=== PATIENT | female | born 1955 | race Caucasian/White ===

== ENCOUNTER 2016-12-04 08:07 | Emergency (ER) | payer BC ==
[2016-12-04] MEDS ORDERED: Pepcid 20 MG PO ONE (08:14)
[2016-12-04] MEDS ORDERED: BENADRYL 50 MG/ML IV ONE (08:14)
[2016-12-04] MEDS ORDERED: EPINEPHRINE 1MG/ML AMP IM ONE ×2 (08:14→08:58)
[2016-12-04] MEDS ORDERED: CLARITIN 10 MG PO ONE (08:14)
[2016-12-04] MEDS ORDERED: Sodium Chloride 0.9% 1000 ML 1,000 ML IV SCH (08:15)
--- NOTE | 2016-12-04 08:24 | ERPHSYRPT ---
- History of Present Illness Time Seen by Provider: 12/04/16 08:13 Source: patient Exam Limitations: no limitations Patient Subjective Stated Complaint: allergic reaction since last night Triage Nursing Assessment: allergic reaction since last night. augmentin since last thursday for upper resp s/s. since last night--hives and swelling to face. rt face more swollen than lt. no cough. states rt lower throat 'feels funny' o2 sat wnl. hives noted to lower extram. c/o itching Physician History: tristan presents form urgent care with hives and swollen lip; patient has been on Augmentin for a URI for 6 days; hx of similar reaction after taking ceflexin a year ago; was placed on steroids and got worse; tested and allergy to ceflexin and steroids; no SOB or wheezing now; hives and swollen lip started last pm; took benadryl and claritin last night; no better; in past IV Benadryl, with po roge and H2 senia; seen at urgent care this am and referred here. No fever or sore throat; no difficulty swallowing; no change in voice Timing/Duration: today (continues), yesterday (onset), gradual onset Severity: moderate Modifying Factors: Improves With: medication Associated Symptoms: rash, other (swelling lower lip) Allergies/Adverse Reactions: morphine Allergy (Unknown, Verified 12/04/16 08:16) Headache headache, felt terrrible cephalexin Allergy (Verified 12/04/16 08:16) prednisone Allergy (Verified 12/04/16 08:16) triamcinolone [From Kenalog] Allergy (Verified 12/04/16 08:16) Home Medications: Alprazolam 1 mg [Xanax 1 mg] 1 mg PO Q8H PRN PRN 05/23/13 [History] Calcium Carbonate [Calcium] 500 mg PO TID 05/23/13 [History] Cyanocobalamin/Cobamamide [B12 5,000 Mcg Microlozenge] 500 mg SL DAILY 05/23/13 [History] Duloxetine HCl [Cymbalta] 60 mg PO DAILY 05/23/13 [History] Loratadine 10 mg [Claritin 10 mg] 10 mg PO DAILY 05/23/13 [History] Zolpidem Tartrate [Ambien Cr] 12.5 mg PO HS 05/23/13 [History] Hx Tetanus, Diphtheria Vaccination/Date Given: Yes Hx Influenza Vaccination/Date Given: Yes Hx Pneumococcal Vaccination/Date Given: No Immunizations Up to Date: Yes - Review of Systems Constitutional: Other (hives ) Eyes: No Symptoms Ears, Nose, & Throat: Mouth Swelling (tongue ok but right lower lip swollen; voice normal; ), No Ear Pain, No Hearing Changes, No Nose Congestion, No Sinus Drainage, No Epistaxis, No Throat Pain, No Throat Swelling, No Hoarse Respiratory: No Cough, No Dyspnea, No Wheezing Cardiac: No Chest Pain, No Palpitations, No Syncope, No Orthopnea Abdominal/Gastrointestinal: No Abdominal Pain, No Nausea, No Vomiting, No Diarrhea Genitourinary Symptoms: No Dysuria, No Frequency, No Hematuria, No Flank Pain Musculoskeletal: No Symptoms Skin: Pruritis, Rash (diffues pruritic hives), No Cellulitis Neurological: No Symptoms Psychological: Anxiety, No Alcohol Abuse, No Drug Abuse, No Suicidal Ideations, No Homicidal Ideations Endocrine: No Symptoms Hematologic/Lymphatic: No Symptoms Immunological/Allergic: No Symptoms - Past Medical History Pertinent Past Medical History: Yes Neurological History: No Pertinent History ENT History: No Pertinent History Cardiac History: Hypertension Respiratory History: Sleep Apnea Endocrine Medical History: Diabetes Type II, Hypothyroidism Musculoskeletal History: Osteoarthritis GI Medical History: No Pertinent History History: No Pertinent History Psycho-Social History: Anxiety, Depression Female Reproductive Disorders: No Pertinent History Other Medical History: pinched nerve in back - Past Surgical History Past Surgical History: Yes Neuro Surgical History: No Pertinent History Cardiac: No Pertinent History Respiratory: No Pertinent History Gastrointestinal: Other Genitourinary: No Pertinent History Musculoskeletal: Other Female Surgical History: No Pertinent History Other Surgical History: gastric bypass,rt foot surgery,sinus surgery,t&a - Social History Smoking Status: Never smoker Exposure to second hand smoke: No Alcohol Use: None Drug Use: none Patient Lives Alone: Yes Significant Family History: no pertinent family hx - Female History Hx Now: No - Nursing Vital Signs Nursing Vital Signs: Initial Vital Signs Temperature Source Oral Pulse Rate 86 Respiratory Rate 18 Blood Pressure [Right Arm] 136/67 Pain Intensity 0 - Physical Exam General Appearance: mild distress (pruritis ), alert, anxiety, obese Eye Exam: PERRL/EOMI, eyes nml inspection, No photophobia Ears, Nose, Throat Exam: normal ENT inspection, TMs normal, pharynx normal, moist mucous membranes, other (normal voice; swelling lower right lip; tongue normal), No pharyngeal erythema Neck Exam: normal inspection, non-tender, supple, full range of motion, other ( no submental swelling), No meningismus, No JVD, No lymphadenopathy, No subcutaneous emphysema Respiratory Exam: normal breath sounds, lungs clear, airway intact, No chest tenderness, No respiratory distress, No diminished breath sounds Cardiovascular Exam: regular rate/rhythm, normal heart sounds, normal peripheral pulses, capillary refill <2 sec, No murmur Gastrointestinal/Abdomen Exam: soft, normal bowel sounds, No tenderness, No distention, No guarding, No rebound, No organomegaly Pelvic Exam: deferred Rectal Exam: deferred Back Exam: normal inspection, normal range of motion, No CVA tenderness, No rash Extremity Exam: normal inspection, normal range of motion, No toney's sign, No pedal edema Neurologic Exam: alert, oriented x 3, cooperative, cashier or checker stock clerk II-XII nml as tested, nml cerebellar function, nml station & gait, sensation nml, No normal mood/ affect (anxious) Skin Exam: normal color, warm, dry, rash (diffuse hives), No petechiae, No cyanosis Lymphatic Exam: No adenopathy SpO2 Interpretation: normal SpO2: 96 Oxygen Delivery: Room Air - Course Nursing assessment & vital signs reviewed: Yes Ordered Tests: Active Orders 24 hr Category Date Time Status CO2 Monitoring STAT Care 12/04/16 08:32 Inactive Eastern Philosophy Professor STAT Care 12/04/16 08:53 Active IV Insertion STAT Care 12/04/16 08:14 Active Pulse Oximetry (ED) STAT Care 12/04/16 08:14 Active Re-Check Vital Signs STAT Care 12/04/16 08:14 Completed Medication Summary Generic Name Dose Route Start Last Admin Trade Name Freq PRN Reason Stop Dose Admin Sodium Chloride 1,000 mls @ 100 mls/hr 12/04/16 08:15 12/04/16 08:34 Sodium Chloride 0.9% 1000 Ml IV 01/03/17 08:14 100 mls/hr .Q10H BRAYDEN Administration Discontinued Medications Generic Name Dose Route Start Last Admin Trade Name Freq PRN Reason Stop Dose Admin Diphenhydramine HCl 50 mg 12/04/16 08:14 12/04/16 08:33 Benadryl 50 Mg/Ml IV 12/04/16 08:15 50 mg STAT ONE Administration Diphenhydramine HCl Confirm 12/04/16 08:27 Benadryl 50 Mg/Ml Administered 12/04/16 08:28 Dose 50 mg .ROUTE .STK-MED ONE Epinephrine HCl 0.3 mg 12/04/16 08:14 12/04/16 08:33 Epinephrine 1:1000 1 Ml Amp IM 12/04/16 08:15 0.3 mg STAT ONE Administration Epinephrine HCl Confirm 12/04/16 08:28 Epinephrine 1:1000 1 Ml Amp Administered 12/04/16 08:29 Dose 1 mg .ROUTE .STK-MED ONE Epinephrine HCl 0.3 mg 12/04/16 08:58 12/04/16 09:27 Epinephrine 1:1000 1 Ml Amp IM 12/04/16 08:59 0.3 mg STAT ONE Administration Epinephrine HCl Confirm 12/04/16 09:26 Epinephrine 1:1000 1 Ml Amp Administered 12/04/16 09:27 Dose 1 mg .ROUTE .STK-MED ONE Famotidine 40 mg 12/04/16 08:14 12/04/16 08:33 Pepcid 20 Mg PO 12/04/16 08:15 40 mg STAT ONE Administration Famotidine Confirm 12/04/16 08:27 Pepcid 20 Mg Administered 12/04/16 08:28 Dose 40 mg .ROUTE .STK-MED ONE Loratadine 10 mg 12/04/16 08:14 12/04/16 08:33 Claritin 10 Mg PO 12/04/16 08:15 10 mg STAT ONE Administration - Progress Progress: improved (after meds), re-examined (after meds) Progress Note: 12/04/16 08:31 will apply ice, medicate with Epi; Benadryl, claritin and H2 senia; monitor and recheckl 12/04/16 08:56 rechecked, VS and monitor ok; hives slight improved; pruritis improving; slight diminution in swelling; voice clear; no trouble talking or swallowing, will repeat epi and recheck 12/04/16 09:38 rechecked and hives almost gone; VS improved; Pulse ox good; no wheezing; no trouble swallowing or talking; normal voice; lip swelling resolving; patient feels much better and wants to go home; she has Benadryl and Claritin at [facility] to take; will give a Rx for Pepcid and have her follow up with lmd; treatment plan and instructions given; Counseled pt/family regarding: diagnosis, need for follow-up - Departure Time of Disposition: 09:40 Departure Disposition: Home Clinical Impression: Allergic angioedema Condition: Stable Critical Care Time: No Referrals: MIREYA AYON MD [Primary Care Provider] - Instructions: Adverse Drug Reaction -- Allergic Additional Instructions: stop Augmentin; encourage fluids; ice chips and compresses; take benadryl and claritin OTC; follow up lmd; RT if problems Follow-up with family doctor as directed. Call for appointment. Return if any problems. If you smoke please stop. Call or follow up with your family doctor for assistance if you need it to stop. Please wear your seatbelt when driving. Have a nice day. Thank you for allowing us to participate in your care today. :o) Dr Nicolás Rucker Prescriptions: Famotidine [Pepcid AC] 20 mg PO BID #20 tablet
[2016-12-04] MEDS ORDERED: BENADRYL 50 MG/ML ONE (08:27)
[2016-12-04] MEDS ORDERED: Pepcid 20 MG ONE (08:27)
[2016-12-04] MEDS ORDERED: EPINEPHRINE 1MG/ML AMP ONE ×2 (08:28→09:26)
[2016-12-04] MEDS ORDERED: Sodium Chloride 0.9% 1000 ML 1,000 ML ONE (08:28)
[2016-12-04 10:09] VITALS: BP 145/74; PULSE 85; O2SAT 97
== END 2016-12-04 10:14 | disposition home or self-care (01) ==
LOC: ED 08:07
DX: T78.3XXA Angioneurotic edema, initial encounter (principal)
CPT/HCPCS: 36000; 93041; 96360; 96361; 96372; 96374; 99285; J0171; J1200; A9270-GY

== ENCOUNTER 2016-12-04 19:40 | Observation (INO) | payer BC ==
[2016-12-04] MEDS ORDERED: EPINEPHRINE 1MG/ML AMP IM ONE (19:51)
[2016-12-04] MEDS ORDERED: Sodium Chloride 0.9% 1000 ML 1,000 ML ONE (19:55)
[2016-12-04] MEDS ORDERED: EPINEPHRINE 1MG/ML AMP ONE (19:55)
--- NOTE | 2016-12-04 19:58 | ERPHSYRPT ---
- History of Present Illness Time Seen by Provider: 12/04/16 19:52 Source: patient Exam Limitations: no limitations Patient Subjective Stated Complaint: allergic reaction to medication Triage Nursing Assessment: pt alert adry chadwick, was in ER this morning had 2 doses of epi and sent home with chris mendoza lips have now swollen up and she is hoarse. has hives in creases of legs and under her arms. lung sounds clear, pulses equal bialteral radius Physician History: 61-year-old white female seen here earlier today secondary allergic reaction and angioedema. Patient apparently has been taking Augmentin for the past 6 days she was apparently allergic to cephalosporins in the past. She was noted beginning last night and swelling in her lips she has hives. She was seen in this emergency room and given Benadryl, Claritin, Pepcid as well as epinephrine. She was sent home with Pepcid she states that at 6:00 she took Benadryl 50 mg she took Pepcid one tablet (20 mg and she took Claritin. She continues to have swelling of her lips that she feels a little hoarse throat. She is not short of breath she has no chest pain she does have some hives on her legs and in her axillary area. She does not appear to be in extreme distress she does however have swollen lips her airway is clear at this time. She does feel like she is getting worse Past medical history includes high blood pressure, sleep apnea, diabetes, hyperthyroidism anxiety, depression patient has a pinched nerve in her back Past surgical history includes gastric bypass, foot surgery, signs and surgery, tonsillectomy and adenoidectomy Timing/Duration: yesterday Severity: moderate Modifying Factors: Improves With: other (has been on Augmentin for 6 days) Associated Symptoms: other (swelling of her lips, tongue, hives), No nausea, No vomiting, No abdominal pain, No shortness of breath, No heartburn, No diaphoresis, No cough, No chills, No chest pain, No fever, No headaches, No loss of appetite, No malaise, No rash, No syncope, No seizure, No weakness Allergies/Adverse Reactions: morphine Allergy (Unknown, Verified 12/04/16 08:16) Headache headache, felt terrrible amoxicillin [From Augmentin] Allergy (Verified 12/04/16 19:52) cephalexin Allergy (Verified 12/04/16 08:16) clavulanic acid [From Augmentin] Allergy (Verified 12/04/16 19:52) prednisone Allergy (Verified 12/04/16 08:16) triamcinolone [From Kenalog] Allergy (Verified 12/04/16 08:16) Home Medications: Alprazolam 1 mg [Xanax 1 mg] 1 mg PO Q8H PRN PRN 05/23/13 [History] Calcium Carbonate [Calcium] 500 mg PO TID 05/23/13 [History] Cyanocobalamin/Cobamamide [B12 5,000 Mcg Microlozenge] 500 mg SL DAILY 05/23/13 [History] Duloxetine HCl [Cymbalta] 60 mg PO DAILY 05/23/13 [History] Loratadine 10 mg [Claritin 10 mg] 10 mg PO DAILY 05/23/13 [History] Zolpidem Tartrate [Ambien Cr] 12.5 mg PO HS 05/23/13 [History] Hx Tetanus, Diphtheria Vaccination/Date Given: Yes Hx Influenza Vaccination/Date Given: Yes Hx Pneumococcal Vaccination/Date Given: No Immunizations Up to Date: Yes - Review of Systems Constitutional: No Fever, No Chills Eyes: No Symptoms Ears, Nose, & Throat: Mouth Swelling, Hoarse, Stridor, Other (swelling of lips and tongue), No Ear Pain, No Ear Discharge, No Hearing Changes, No Tinnitus, No Loose Teeth, No Throat Pain, No Throat Swelling, No Painful Swallowing, No Snoring Respiratory: No Cough, No Dyspnea Cardiac: No Chest Pain, No Edema, No Syncope Abdominal/Gastrointestinal: No Abdominal Pain, No Nausea, No Vomiting, No Diarrhea Genitourinary Symptoms: No Dysuria Musculoskeletal: No Back Pain, No Neck Pain Skin: No Rash Neurological: No Dizziness, No Focal Weakness, No Sensory Changes Psychological: No Symptoms Endocrine: No Symptoms All Other Systems: Reviewed and Negative - Past Medical History Pertinent Past Medical History: Yes Neurological History: No Pertinent History ENT History: No Pertinent History Cardiac History: Hypertension Respiratory History: Sleep Apnea Endocrine Medical History: Diabetes Type II, Hypothyroidism Musculoskeletal History: Osteoarthritis GI Medical History: No Pertinent History History: No Pertinent History Psycho-Social History: Anxiety, Depression Female Reproductive Disorders: No Pertinent History Other Medical History: pinched nerve in back - Past Surgical History Past Surgical History: Yes Neuro Surgical History: No Pertinent History Cardiac: No Pertinent History Respiratory: No Pertinent History Gastrointestinal: Other Genitourinary: No Pertinent History Musculoskeletal: Other Female Surgical History: No Pertinent History Other Surgical History: gastric bypass,rt foot surgery,sinus surgery,t&a - Social History Smoking Status: Never smoker Exposure to second hand smoke: No Alcohol Use: None Drug Use: none Patient Lives Alone: Yes Significant Family History: no pertinent family hx - Female History Hx Now: No - Nursing Vital Signs Nursing Vital Signs: Initial Vital Signs Temperature 98.4 F Temperature Source Oral Pain Intensity 0 - Physical Exam General Appearance: mild distress, other (well-developed well-nourished white female, alert oriented 3, not in acute distress lips are swollen airway clear) Eye Exam: PERRL/EOMI, eyes nml inspection Ears, Nose, Throat Exam: TMs normal, pharynx normal, moist mucous membranes, dry mucous membranes, other (lips are swollen,airway clear), No pharyngeal erythema Neck Exam: normal inspection, non-tender, supple, full range of motion Respiratory Exam: normal breath sounds, lungs clear, No respiratory distress Gastrointestinal/Abdomen Exam: soft, normal bowel sounds, No tenderness, No mass Extremity Exam: normal inspection, normal range of motion, pelvis stable Neurologic Exam: alert, oriented x 3, cooperative, normal mood/affect, nml cerebellar function, nml station & gait, sensation nml, No motor deficits Skin Exam: other (urticaria posterior knees and axillary area) SpO2 Interpretation: normal (96%) SpO2: 96 Oxygen Delivery: Room Air - Course Nursing assessment & vital signs reviewed: Yes EKG Interpreted by Me: RATE (81 bpm), Sinus Rhythm, NORMAL AXIS, Other (EKG,, sinus rhythm, 81 bpm, normal axis, no acute ST or T wave changes, normal EKG.) Ordered Tests: Active Orders 24 hr Category Date Time Status Accucheck STAT Care 12/04/16 19:51 Active EKG-ER Only STAT Care 12/04/16 19:51 Active IV Insertion STAT Care 12/04/16 19:51 Active BMP Stat Lab 12/04/16 19:55 Received CBC W DIFF Stat Lab 12/04/16 19:55 Completed Medication Summary Generic Name Dose Route Start Last Admin Trade Name Freq PRN Reason Stop Dose Admin Sodium Chloride 1,000 mls @ 100 mls/hr 12/04/16 20:00 12/04/16 20:00 Sodium Chloride 0.9% 1000 Ml IV 01/03/17 19:59 100 mls/hr .Q10H BRAYDEN Administration Discontinued Medications Generic Name Dose Route Start Last Admin Trade Name Freq PRN Reason Stop Dose Admin Epinephrine HCl 0.3 mg 12/04/16 19:51 12/04/16 19:57 Epinephrine 1:1000 1 Ml Amp IM 12/04/16 19:52 0.3 mg STAT ONE Administration Epinephrine HCl Confirm 12/04/16 19:55 Epinephrine 1:1000 1 Ml Amp Administered 12/04/16 19:56 Dose 1 mg .ROUTE .STK-MED ONE Lab/Rad Data: Laboratory Result Diagrams 12/04/16 19:55 Laboratory Results 12/04/16 Range/Units 19:55 WBC 9.7 (4.0-10.5) K/mm3 RBC 4.26 (4.1-5.4) M/mm3 Hgb 12.6 (12.0-16.0) gm/dl Hct 39.4 (35-47) % MCV 92.5 (78-100) fl MCH 29.6 (26-32) pg MCHC 32.0 (32-36) g/dl RDW 14.7 H (11.5-14.0) % Plt Count 277 (150-450) K/mm3 MPV 8.7 (6-9.5) fl Gran % 72.9 H (36.0-66.0) % Lymphocytes % 20.5 L (24.0-44.0) % Monocytes % 3.5 (0.0-12.0) % Eosinophils % 2.9 (0.00-5.0) % Basophils % 0.2 (0.0-0.4) % Basophils # 0.02 (0-0.4) - Progress Progress: improved Progress Note: 12/04/16 19:58 61-year-old white female who is allergic to steroids seen earlier today secondary to angioedema with swelling of the tongue and lips. She was given Benadryl, Pepcid, Claritin, epinephrine. Patient improved she was discharged with prescription for Pepcid. She states that she became worse at home she had taken Benadryl 50 mg prior to arrival she states that she took Pepcid 20 mg and one Claritin tablet. She arrives she feels like she is somewhat hoarse however she is breathing well speaking well and airway is clear. Her lips however are edematous. She does have some urticaria in her axillary area and in her posterior knees. Will go ahead and give patient epinephrine 0.3 mg IM Will start IV normal saline 100 mils an hour. Obtain EKG CBC BMP anticipate placement on observation secondary to failed outpatient treatment. 12/04/16 20:14 Case is discussed with Dr. Overton will place on [employer] telemetry with continuos pulse oximetry. Provide every 6 hours Benadryl IV normal saline 100 mL per hour provide 4 times a day Accu-Cheks. Racemic epinephrine treatments pnn, . - Departure Time of Disposition: 20:20 Departure Disposition: Observation Clinical Impression: Failure of outpatient treatment Angioedema Qualifiers: Encounter type: subsequent encounter Qualified Code(s): T78.3XXD - Angioneurotic edema, subsequent encounter Allergic reaction Qualifiers: Encounter type: subsequent encounter Qualified Code(s): T78.40XD - Allergy, unspecified, subsequent encounter Condition: Fair Critical Care Time: No
[2016-12-04] MEDS ORDERED: Sodium Chloride 0.9% 1000 ML 1,000 ML IV SCH ×2 (20:00→21:00)
[2016-12-04 20:04] LABS: BASOPHIL % 0.2 % (0.0-0.4); Eosinophil % 2.9 % (0.00-5.0); Granulocytes % 72.9 % (36.0-66.0); Lymphocytes % 20.5 % (24.0-44.0); Mean Cell Volume 92.5 fl (78-100); Mean Corpuscular Hemoglobin 29.6 pg (26-32); Mean Platelet Volume 8.7 fl (6-9.5); Monocytes % 3.5 % (0.0-12.0); Platelet Count 277 K/mm3 (150-450); Red Blood Count 4.26 M/mm3 (4.1-5.4); Red Cell Distribution Width 14.7 % (11.5-14.0); White Blood Count 9.7 K/mm3 (4.0-10.5)
[2016-12-04 20:18] LABS: ANION GAP 13.5 MEQ/L (5-15); BLOOD UREA NITROGEN 10 mg/dL (9-20); CHLORIDE 109 mEq/L (98-107); Carbon Dioxide 26.1 mEq/L (21-32); Glucose 140 MG/DL (70-110); Potassium 4.5 mEq/L (3.5-5.1); SODIUM 144 mEq/L (136-145)
[2016-12-04] MEDS ORDERED: NovoLOG Insulin SQ PRN (21:00)
[2016-12-04] MEDS ORDERED: XANAX 1 MG PO ONE (22:30)
[2016-12-04] MEDS ORDERED: XANAX 1 MG PO PRN (22:40)
[2016-12-04] MEDS ORDERED: Ambien 10 MG ONE (22:50)
[2016-12-04] MEDS ORDERED: XANAX 1 MG ONE (22:50)
[2016-12-04] MEDS: Pepcid 20 MG PO SCH (22:52)
[2016-12-04] MEDS: BENADRYL 50 MG/ML IV PRN (22:56)
[2016-12-04] MEDS ORDERED: Sodium Chloride 3 ML UD NEBULES IH ONE (22:59)
[2016-12-04] MEDS: Racepinephrine INH Solution 2.25% IH PRN (23:02)
[2016-12-04] MEDS ORDERED: Ambien 10 MG PO SCH (23:35)
[2016-12-05 05:54] LABS: BASOPHIL % 0.1 % (0.0-0.4); Eosinophil % 2.7 % (0.00-5.0); Granulocytes % 68.2 % (36.0-66.0); Lymphocytes % 24.2 % (24.0-44.0); Mean Cell Volume 94.3 fl (78-100); Mean Corpuscular Hemoglobin 29.8 pg (26-32); Monocytes % 4.8 % (0.0-12.0); Platelet Count 220 K/mm3 (150-450); Red Blood Count 3.89 M/mm3 (4.1-5.4); Red Cell Distribution Width 14.8 % (11.5-14.0); White Blood Count 6.9 K/mm3 (4.0-10.5)
[2016-12-05] MEDS ORDERED: BENADRYL 50 MG/ML ONE (06:27)
[2016-12-05] MEDS: BENADRYL 50 MG/ML IV PRN ×4 (06:29→21:19)
[2016-12-05] MEDS ORDERED: Sodium Chloride 3 ML UD NEBULES IH ONE (06:38)
[2016-12-05] MEDS: Racepinephrine INH Solution 2.25% IH PRN (06:39)
[2016-12-05] MEDS ORDERED: NON-FORMULARY ITEM PO SCH (08:00)
[2016-12-05] MEDS: TYLENOL 325 MG PO PRN ×3 (08:37→20:16)
[2016-12-05] MEDS: Calcium 500MG W/Vit D Tablet PO SCH ×3 (08:38→21:18)
[2016-12-05] MEDS: Pepcid 20 MG PO SCH ×2 (08:38→21:18)
[2016-12-05] MEDS ORDERED: Cymbalta 30 MG Capsule PO SCH (10:00)
[2016-12-05] MEDS ORDERED: Vitamin B-12 500 MCG PO SCH (10:00)
[2016-12-05] MEDS ORDERED: COBAMAMIDE SL SCH (10:00)
[2016-12-05] MEDS ORDERED: CYANOCOBALAMIN SL SCH (10:00)
[2016-12-05] MEDS ORDERED: NON-FORMULARY ITEM (Calcium Carbonate [Calcium] 500 MG) PO SCH (10:00)
[2016-12-05] MEDS ORDERED: NON-FORMULARY ITEM (Duloxetine Hcl [Cymbalta] 60 MG) PO SCH (10:00)
--- NOTE | 2016-12-05 10:25 | HP ---
CHIEF COMPLAINT: Swelling, hives, allergic reaction to Augmentin. HISTORY OF PRESENT ILLNESS: The patient is a 61 year-old white female who presented to the emergency room after having taken several doses of Augmentin. She reports known history to cephalexin. Apparently the patient has had problems with hives in the past and had been treated with steroids multiple times but she reports that she has bad reactions to steroids with increasing swelling. She reports that she has been to an bolt threader and had confirmed her allergies to all steroids. PAST MEDICAL/SURGICAL HISTORY: Significant for recent upper respiratory tract infection for which she had been taking the Augmentin. She has history of anxiety and diabetes mellitus type 2 and hypothyroidism. She had gastric bypass surgery, right foot surgery, T&A and sinus surgery. HOME MEDICATIONS: Alprazolam 1 mg every 8 hours PRN anxiety, calcium, B12, Cymbalta 60 mg daily, loratadine 10 mg a day and Ambien CR 12.5 mg at night. ALLERGIES: MORPHINE, AMOXICILLIN, CEPHALEXIN, PREDNISONE, KENALOG. PHYSICAL EXAMINATION: Revealed an obese white female currently in no obvious distress. Her vital signs are stable. She is afebrile. HEENT: Normocephalic except for the swelling around the lips and jaw area which does not appear to be obstructing. Her voice appears to be normal. NECK: Supple without lymphadenopathy, thyromegaly. CHEST: Clear to auscultation with good air movement bilaterally. HEART: Regular rate and rhythm without murmurs, rubs or gallops. ABDOMEN: Soft, nontender, nondistended without hepatosplenomegaly or masses. EXTREMITIES: Without cyanosis, clubbing or edema. NEUROLOGIC: The patient is alert and oriented x3. No focal deficits are noted. LAB DATA AND TESTS: Revealed CBC with hemoglobin 12.6, white blood cell count 9,700, PLT count 276,000. Her metabolic panel showed glucose 140, BUN 10, creatinine 0.72. Electrolytes were normal. Her rhythm tracing was normal sinus rhythm. ASSESSMENT: A patient with angioedema likely secondary to the Augmentin with Penicillin allergy. The patient has been admitted to the hospital for close observation. She has been treated with racemic epinephrine thus far, IV Benadryl. She has been taking oral Benadryl, Claritin and Pepcid for antihistamine block aide. The patient will continue to be monitored in the hospital over the next 24 hours at least to be sure that she is progressing to respiratory difficulties or shock.
[2016-12-05] MEDS: XANAX 1 MG PO PRN ×2 (11:01→22:04)
[2016-12-05] MEDS ORDERED: Ambien 10 MG PO SCH (22:00)
[2016-12-06] MEDS ORDERED: Sodium Chloride 0.9% 10 ML FLUSH Syringe IV SCH (06:00)
--- NOTE | 2016-12-06 06:56 | PCM.DCORD ---
- Discharge Discharge Date: 12/06/16 Disposition: Home, Self-Care Condition: Fair Prescriptions: New Diphenhydramine HCl [Benadryl] 50 mg PO Q4H PRN PRN #0 capsule PRN Reason: Itching Continue Zolpidem Tartrate [Ambien Cr] 12.5 mg PO HS Loratadine 10 mg [Claritin 10 mg] 10 mg PO DAILY Duloxetine HCl [Cymbalta] 60 mg PO DAILY Cyanocobalamin/Cobamamide [B12 5,000 Mcg Microlozenge] 500 mg SL DAILY Calcium Carbonate [Calcium] 500 mg PO TID Alprazolam 1 mg [Xanax 1 mg] 1 mg PO Q8H PRN PRN PRN Reason: Anxiety Famotidine [Pepcid AC] 20 mg PO BID #20 tablet Follow up with: JENNIFER MCGILL [Primary Care Provider] -
--- NOTE | 2016-12-06 06:59 | PCM.DS ---
Discharge Summary Date of Admission: 12/04/16 20:49 Date of Discharge: 12/06/16 Admitting Physician: JENNIFER MCGILL Primary Care Provider: JENNIFER MCGILL Allergies Allergies amoxicillin [From Augmentin] Allergy (Severe, Verified 12/05/16 07:41) Swelling of Tongue and Lips Severe reaction. Admited to ICU cephalexin Allergy (Severe, Verified 12/05/16 07:41) Swelling of Face morphine Allergy (Unknown, Verified 12/04/16 08:16) Headache headache, felt terrrible clavulanic acid [From Augmentin] Allergy (Verified 12/04/16 19:52) prednisone Allergy (Verified 12/04/16 08:16) triamcinolone [From Kenalog] Allergy (Verified 12/04/16 08:16) Hospital Summary - Hospital Course Hospital Course: She has history of multiple allergies and severe hives and angioedema in the past with keflex that worsened after steroids in the hospital. She has been on amoxicillin in past wihout difficulties and about 6 days into augmentin Rx she began having facial and lip swelling and diffuse hives and itching. She preseted to ED was given epinephrine and benadryl and pepcid and continued on this and showed slow progressive improvement. She reports previous allergy testing with Dr. Cortez showing allergy to the steroids as well and thus she was not treated with steroids here. She still has hives but no airway compromise no wheezing and no lip or tongue swelling. her itching is better with the benadryl. - Vitals & Intake/Output Vital Signs: Vital Signs Temperature 98.6 F 12/06/16 04:15 Pulse Rate 81 12/06/16 04:15 Respiratory Rate 18 12/06/16 04:15 Blood Pressure 116/59 12/06/16 04:15 O2 Sat by Pulse Oximetry 95 12/06/16 04:15 Intake & Output: Intake & Output 12/03/16 12/04/16 12/05/16 12/06/16 11:59 11:59 11:59 11:59 Intake Total 1450 1000 Balance 1450 1000 Weight 123.2 kg - Lab Result Diagrams: 12/05/16 05:41 12/04/16 19:55 Lab Results-Last 24 Hrs: Accuchecks Date 12/05/16 Date 12/05/16 Time 21:49 Time 11:20 Accucheck Value: 160 Accucheck Value: 139 Lab Results-Last 24 Hours 12/05/16 Range/Units 14:30 Streptococcus Screen NEGATIVE (Negative) Micro Results-Entire Visit: Accuchecks Date 12/05/16 Date 12/05/16 Time 21:49 Time 11:20 Accucheck Value: 160 Accucheck Value: 139 - Procedures and Test Procedures and Tests throughout Hospitalization: Therapy Orders & Screens 12/04/16 22:48 BiPap/CPAP Assessment ROUTINE Comment: Diagnosis: Shortness of Breath Discharge Exam General Appearance: no apparent distress, alert, obese Neurologic Exam: alert, oriented x 3, cooperative, normal mood/affect, nml cerebellar function, sensation nml, No motor deficits Skin Exam: normal color, warm, dry, rash, other (diffuse hives, periorbital edema lips and tongue normal) Eye Exam: PERRL, EOMI, eyes nml inspection Ears, Nose, Throat Exam: normal ENT inspection, pharynx normal, moist mucous membranes Neck Exam: normal inspection, non-tender, supple, full range of motion Respiratory Exam: normal breath sounds, lungs clear, No respiratory distress Cardiovascular Exam: regular rate/rhythm, normal heart sounds Gastrointestinal/Abdomen Exam: soft, No tenderness, No mass Extremity Exam: normal inspection, normal range of motion Back Exam: normal inspection, normal range of motion, No CVA tenderness, No vertebral tenderness Pelvic Exam: deferred Rectal Exam: deferred Final Diagnosis/Problem List - Final Discharge Diagnosis/Problem (1) Allergic drug reaction Current Visit: Yes Status: Acute (2) Allergic angioedema Current Visit: Yes Status: Acute - Discharge Disposition: Home, Self-Care Condition: Fair Prescriptions: New Diphenhydramine HCl [Benadryl] 50 mg PO Q4H PRN PRN #0 capsule PRN Reason: Itching Continue Zolpidem Tartrate [Ambien Cr] 12.5 mg PO HS Loratadine 10 mg [Claritin 10 mg] 10 mg PO DAILY Duloxetine HCl [Cymbalta] 60 mg PO DAILY Cyanocobalamin/Cobamamide [B12 5,000 Mcg Microlozenge] 500 mg SL DAILY Calcium Carbonate [Calcium] 500 mg PO TID Alprazolam 1 mg [Xanax 1 mg] 1 mg PO Q8H PRN PRN PRN Reason: Anxiety Famotidine [Pepcid AC] 20 mg PO BID #20 tablet Follow up with: JENNIFER MCGILL [Primary Care Provider] -
[2016-12-06] MEDS: BENADRYL 50 MG/ML IV PRN (07:15)
[2016-12-06 08:10] VITALS: BP 133/72; PULSE 85; O2SAT 94
== END 2016-12-06 08:35 | disposition home or self-care (01) ==
LOC: ED 19:40 → INTOOBSV 20:49 → ICU 20:49 → MED SURG 12-05 17:55
PROVIDERS: ADMIT Family Medicine; ATTEND Family Medicine
DX: T36.1X5A Adverse effect of cephalosporins and other beta-lactam antibiotics, initial encounter (principal); T78.3XXA Angioneurotic edema, initial encounter; F41.9 Anxiety disorder, unspecified
CPT/HCPCS: 36000; 36415; 80048; 82962; 85025; 87070; 87430; 93005; 94640; 94660; 94760; 96360; 96372; 99285; G0378; J0171; J1200; A9270-GY